=== PATIENT | male | born 1990 | race Caucasian/White ===

== ENCOUNTER 2023-10-20 15:48 | Emergency (ER) | payer OTHER, SELFPAY ==
--- NOTE | ~2023-10-20 | XR_ITS ---
EXAMINATION: XR FOREARM, RIGHT CLINICAL INFORMATION: Right forearm injury and pain COMPARISON: None available. TECHNIQUE: AP and lateral views of the right forearm were obtained. FINDINGS: BONES: Bony structures are intact. There is no focal bone destruction or periosteal reaction seen. JOINTS: Alignment of joints is normal. SOFT TISSUE: Soft tissue is normal. No radiopaque foreign body or abnormal air collection is seen. XR/XR forearm RT 2V IMPRESSION: 1. Normal x-rays of right radius and ulna. No fracture or dislocation or signs of osteomyelitis are found.
[2023-10-20 16:07] VITALS: BP 145/95; PULSE 99; O2SAT 96
[2023-10-20 16:08] VITALS: BP 156/76; PULSE 80; RESP 18; TEMP 36.9; O2SAT 97; BMI 31.8
--- NOTE | 2023-10-20 16:36 | ED_ITS ---
HPI - General Adult General Chief complaint: Animal Bite Stated complaint: DOG BITE Time Seen by Provider: 10/20/23 16:06 Source: patient, RN notes reviewed and old records reviewed Mode of arrival: EMS Limitations: no limitations History of Present Illness HPI narrative: 33-year-old male presents for evaluation of a dog bite to the right forearm. 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 He reports that he went to an individual's house for a wellness check The or open the door and the dog neck out and jumped to bite the patient The patient used his right forearm to protect himself and the dog bit his right forearm Patient reports that the dog did not latch and shake his head or continue putting for an extended period He reports the dog bit and he under was able to control the dog and get him back inside There were no other injuries The patient believes that he is up-to-date on his tetanus as he was given a booster the last 4 years while working in the He was able to confirm the dog is up-to-date on rabies vaccination status He complains of 7/10 pain to the right forearm His pain extends into the dorsum of the right hand but there was no bite to the right hand There is minimal bleeding Related Data Previous Rx's Medication Instructions Recorded metronidazole 500 mg tablet 500 mg PO Q12H #10 tabs 10/20/23 sulfamethoxazole 800 1 tab PO Q12H #10 tabs 10/20/23 mg-trimethoprim 160 mg tablet (Bactrim DS) Allergies Allergy/AdvReac Type Severity Reaction Status Date / Time amoxicillin Allergy Angioedema Verified 10/20/23 15:54 Review of Systems Constitutional: Constitutional: Denies fever(s) and Denies headache(s) ENT: Denies headache(s) Musculoskeletal: Musculoskeletal: Reports arthralgias, Reports joint swelling and Reports limited range of motion Integumentary/Breasts: Skin/Breast: Reports wounds Neurologic: Denies headache(s) PMFSH Social History Advance Directives: No Advance Directives Information Provided: No Physical Exam ED Vital Signs: Vital Signs - 24 hr 10/20/23 16:08 Temperature 98.4 F Pulse Rate 80 Respiratory Rate 18 Blood Pressure 156/76 H Pulse Oximetry 97 Oxygen Delivery Method Room Air BMI result Body Mass Index 31.8 Const General: healthy appearing, comfortable, no acute distress, alert and awake Nutritional Appearance: well nourished Orientation/consciousness: patient oriented x3 HENMT Head: Yes normocephalic and Yes atraumatic Neck Neck: Yes full ROM Resp Effort & Inspection: normal respiratory effort, able to speak in complete sentences and not labored Skin Other: Patient has mild edema to the dorsal surface of the right distal 3rd of the forearm. There are to puncture wounds/small lacerations. The largest approximately 1.5 cm to the dorsal surface of the distal forearm on the ulnar side. There is a slightly smaller puncture wound is on the ventral surface of the right forearm on the ulnar side. There is minimal bleeding from the larger wound. General skin exam: elasticity normal Neuro General: patient oriented x3 Cranial nerves: Yes Bilaterally intact EOM present Cognition (Neuro): normal cognition Extrem Other: Patient is able to wiggle all 5 fingers of the right hand. He has some difficulty closing his hand into a fist due to pain. Distal sensation and cap refill intact. Medications Administered Discontinued Medications Generic Name Dose Route Start Last Admin Trade Name Freq PRN Reason Stop Dose Admin Ibuprofen 800 mg 10/20/23 16:25 10/20/23 16:50 Ibuprofen 800 Mg Tablet PO 10/20/23 16:26 800 mg ONCE ONE Administration Metronidazole 500 mg 10/20/23 16:34 10/20/23 16:50 Metronidazole 500 Mg Tablet PO 10/20/23 16:35 500 mg ONCE ONE Administration Trimethoprim/Sulfamethoxazole 1 tab 10/20/23 16:34 10/20/23 16:50 Sulfamethox/Trimeth 800/160 Tablet PO 10/20/23 16:35 1 tab ONCE ONE Administration Medical Decision Making Medical Decision Making [facility] Narrative: 33-year-old male presents for evaluation of a dog bite to the right forearm. He has 2 puncture wounds that are slightly deeper than several small abrasions/scratches around the deeper puncture wounds. The wounds were copiously irrigated with saline and Betadine. Will get an x-ray of the right forearm. Patient is up-to-date on tetanus and does not require rabies vaccinations. He was given ibuprofen for comfort. Patient be discharged on Bactrim and Flagyl as he is allergic to amoxicillin. Differential Diagnosis Differential Diagnoses: The differential diagnosis associated with the presentation includes Dog bite Puncture wound Laceration Ulna fracture Contusion Independent Interpretation I performed an independent interpretation of an: Plain X-Ray (No obvious fracture of the right forearm) Radiology Impression Discussion of test interpretation with radiology: I have reviewed the radiologist's reading. (No evidence for fracture or osteomyelitis the right forearm) Discharge Plan Discharge Clinical Impression: Dog bite Patient Disposition: Home, Self-Care Instructions: Animal Bite (ED) Additional Instructions: Keep the area clean and dry. Apply topical antibiotic once per day. You may use Bactrim and Flagyl twice daily for 5 days to prevent infection Follow-up with your primary doctor Return for new or worsening symptoms Prescriptions: New sulfamethoxazole-trimethoprim [Bactrim DS] 800-160 mg tablet 1 tab PO Q12H Qty: 10 0RF metronidazole 500 mg tablet 500 mg PO Q12H Qty: 10 0RF Stand Alone Forms: Work/School Release
[2023-10-20] MEDS: metroNIDAZOLE 500 MG TABLET PO (16:50)
[2023-10-20] MEDS: Sulfamethox/Trimeth 800/160 TABLET 1 TAB PO (16:50)
[2023-10-20] MEDS: Ibuprofen 800 MG TABLET PO (16:50)
== END 2023-10-20 17:45 | disposition home or self-care (01) ==
PROVIDERS: Emergency Provider Emergency Medicine Emergency Medical Services
DX: S51.851A Open bite of right forearm, initial encounter (principal); M79.631 Pain in right forearm; W54.0XXA Bitten by dog, initial encounter; Y93.9 Activity, unspecified; Y92.9 Unspecified place or not applicable; Y99.9 Unspecified external cause status
CPT/HCPCS: 73090; 99283

== ENCOUNTER 2023-10-21 12:10 | Emergency (ER) | payer OTHER, SELFPAY ==
[2023-10-21 12:25] VITALS: BP 135/85; PULSE 65; RESP 16; TEMP 36.7; O2SAT 95; BMI 32.5
--- NOTE | 2023-10-21 12:26 | ED_ITS ---
HPI - General Adult General Chief complaint: Animal Bite Stated complaint: Animal bite Time Seen by Provider: 10/21/23 12:39 Source: patient Mode of arrival: ambulatory Limitations: no limitations History of Present Illness HPI narrative: 33-year-old male with no significant pmhx presents to the ED today 1 day status post dog bite to his right forearm, requesting rabies vaccination. He was evaluated at our facility yesterday for dog bite from unknown pitbull that occurred while performing a wellness check at an unknown individual's house. He was told that the dog was up-to-date on vaccinations however this was not the case. He did not receive tetatnus vaccine in ED yesterday. Has been taking antibiotics prescribed him yesterday as prescribed. No physical complaints in ED. Denies fever, chills, decreased range of motion of the right wrist or fingers, numbness/tingling/weakness of the right upper extremity. Related Data Previous Rx's Medication Instructions Recorded metronidazole 500 mg tablet 500 mg PO Q12H #10 tabs 10/20/23 sulfamethoxazole 800 1 tab PO Q12H #10 tabs 10/20/23 mg-trimethoprim 160 mg tablet (Bactrim DS) Allergies Allergy/AdvReac Type Severity Reaction Status Date / Time amoxicillin Allergy Angioedema Verified 10/21/23 12:28 Review of Systems Review of Systems: Constitutional: No fever, chills, fatigue, night sweats, weight changes ENT/Mouth: No ear pain, hearing loss, nasal congestion, sinus pain, rhinorrhea, sore throat Eyes: No eye pain, swelling, redness, vision changes, discharge Cardio: No chest pain, palpitations, GALLARDO, orthopnea, peripheral edema Pulm: No SOB, cough, sputum, wheezing, dyspnea, hemoptysis GI: No nausea, vomiting, hematemesis, abdominal pain, diarrhea, constipation, hematochezia, melena : No irregular bleeding, dysuria, frequency, urgency, hesitancy, hematuria, flank pain, urinary flow changes, urinary incontinence or retention MSK: No back pain, neck pain, joint pain, myalgias Skin: No lesions, rashes Neuro: No weakness, numbness, paresthesias, LOC, dizziness, headache All other systems reviewed and are negative. [facility] Past Medical History Attestation statement: The following information was validated with the patient. Source: old records reviewed and nursing notes reviewed Social History Advance Directives: No Advance Directives Information Provided: Yes Physical Exam ED Vital Signs: Vital Signs - 24 hr 10/21/23 12:25 Temperature 98.1 F Pulse Rate 65 Respiratory Rate 16 Blood Pressure 135/85 Pulse Oximetry 95 Oxygen Delivery Method Room Air BMI result Body Mass Index 32.5 Vital signs stable, afebrile Const General: cooperative, healthy appearing, comfortable, no acute distress, alert and awake Orientation/consciousness: patient oriented x3 Limitations: no limitations HENMT Mouth: Normal oral and palatal mucosa present and moist mucous membranes Eyes General: appearance normal, both eyes and all related structures Conjunctivae: conjunctivae normal Sclerae: sclerae normal Pupils: Equal, round and reactive pupils present Neck Neck: Yes normal visual inspection Resp Effort & Inspection: normal respiratory effort Auscultation: clear to auscultation bilaterally Cardio Rate: regular rate Rhythm: regular rhythm Peripheral pulses: radial pulses present and ulnar radial pulses present Neuro General: patient oriented x3, gait normal and moves all extremities Cranial nerves: Yes CN's II-XII intact bilaterally and Yes Equal, round and reactive pupils present Extrem General: Yes full ROM and Yes capillary refill normal Medications Administered Discontinued Medications Generic Name Dose Route Start Last Admin Trade Name Freq PRN Reason Stop Dose Admin Rabies Immune Globulin 1,770 unit 10/21/23 12:32 10/21/23 13:05 Rabies Immune Globulin/Pf 900 Unit/3 Ml Vial 20 unit/kg (1770 unit) 10/21/23 12:33 1,770 unit IM Administration ONCE ONE Rabies Vaccine Human Diploid Cell 1 ml 10/21/23 12:31 10/21/23 13:06 Rabies Vaccine, Human Diploid (Imovax) 1 Ml Vial IM 10/21/23 12:32 1 ml .ONCE ONE Administration Medical Decision Making Medical Decision Making MDM Narrative: 33-year-old male with no significant pmhx presents to the ED today 1 day status post dog bite to his right forearm requesting rabies vaccination. Vital signs stable. Afebrile. Nontoxic appearing and in no acute distress. Bandage applied to right forearm dry/ intact. There are 2 puncture wounds noted to the dorsal surface of the right forearm and a small puncture wound to the ventral surface of the right forearm. No active bleeding or discharge. No palpable warmth or fluctuance. Full ROM right wrist/ fingers intact. 2+ radial and ulnar pulses b/l. Clinical concern for dog bite. Unlikely tenosynovitis, acute rabies infection, osteomyelitis. Plan for administration of rabies vaccination and discharge. Differential Diagnosis Differential Diagnoses: The differential diagnosis associated with the presentation includes As above. Admission/Observation Not indicated. External Record Review External record reviewed: Inpatient record Prescription Management I considered prescription management with: Pain Medication and Antibiotic Critical Care Time Critical Care Time Critical Care Time: No Discharge Plan Discharge Clinical Impression: Dog bite, Rabies, need for prophylactic vaccination against Patient Disposition: Home, Self-Care Instructions: Animal Bite (ED), Rabies (ED) Additional Instructions: You were provided with 2 rabies vaccinations today. Continue taking antibiotics that were prescribed to yesterday. Do not miss any doses or stop taking these early as this may cause infection to worsen or return. Return to the emergency department if you developed excessive salivation, agitation, decreased sensation/numbness to your legs or arms. If symptoms persist or worsen please return to emergency department. In the emergency call 911. Prescriptions: No Action sulfamethoxazole-trimethoprim [Bactrim DS] 800-160 mg tablet 1 tab PO Q12H Qty: 10 0RF metronidazole 500 mg tablet 500 mg PO Q12H Qty: 10 0RF Stand Alone Forms: Work/School Release Interventions: ED Discharge Assessment Last Done: 10/21/23 13:33 Discharge Date/Time: 10/21/23 13:34
[2023-10-21] MEDS: Rabies Immune Globulin/PF 900 UNIT/3 ML VIAL 1770 UNIT IM (13:05)
[2023-10-21] MEDS: Rabies Vaccine, Human Diploid (Imovax) 1 ML VIAL IM (13:06)
--- NOTE | 2023-10-21 13:12 | PC.NURSE ---
provider at bedside administering rabies shot to bite on arm
== END 2023-10-21 13:34 | disposition home or self-care (01) ==
PROVIDERS: Emergency Provider Emergency Medicine
DX: S51.851A Open bite of right forearm, initial encounter (principal); W54.0XXA Bitten by dog, initial encounter; Y93.89 Activity, other specified; Y92.9 Unspecified place or not applicable; Y99.9 Unspecified external cause status; Z20.3 Contact with and (suspected) exposure to rabies
CPT/HCPCS: 90375; 90471; 90675; 96372; 99282; 99284

== ENCOUNTER 2023-10-24 11:55 | Outpatient (REF) | payer OTHER, SELFPAY | END 2023-10-24 11:56 | disposition home or self-care (01) | LOC: HO.MDS 11:55 | PROVIDERS: Visit Provider Physician Assistant Medical | DX: Z20.3 Contact with and (suspected) exposure to rabies (principal); T14.8XXD Other injury of unspecified body region, subsequent encounter; W54.0XXD Bitten by dog, subsequent encounter | CPT/HCPCS: 90471; 90675 ==

== ENCOUNTER 2023-10-28 11:28 | Outpatient (REF) | payer OTHER, SELFPAY | END 2023-10-28 11:29 | disposition home or self-care (01) | LOC: HO.MDS 11:28 | PROVIDERS: Visit Provider Physician Assistant Medical | DX: Z20.3 Contact with and (suspected) exposure to rabies (principal); T14.8XXD Other injury of unspecified body region, subsequent encounter; W54.0XXD Bitten by dog, subsequent encounter | CPT/HCPCS: 90471; 90675 ==

== ENCOUNTER 2023-11-04 10:08 | Outpatient (REF) | payer OTHER, SELFPAY | END 2023-11-04 10:09 | disposition home or self-care (01) | LOC: HO.MDS 10:08 | PROVIDERS: Visit Provider Physician Assistant Medical | DX: Z20.3 Contact with and (suspected) exposure to rabies (principal); T14.8XXD Other injury of unspecified body region, subsequent encounter; W54.0XXD Bitten by dog, subsequent encounter | CPT/HCPCS: 90471; 90675 ==